=== PATIENT | female | born 1970 | race Native Hawaiian/Other Pacific Islander ===

== ENCOUNTER 2017-03-26 20:29 | Emergency (ER) | payer OTHER ==
[~2017-03-26] VITALS: Ht 167.6 cm; Wt 70.3 kg
[2017-03-26 22:52] LABS: PLATELET COUNT 341 K/uL (152-353)
== END 2017-03-27 01:17 | disposition home or self-care (01) ==
LOC: ED 20:29
PROVIDERS: Specialist
DX: F43.20 Adjustment disorder, unspecified (principal); R45.86 Emotional lability
CPT/HCPCS: 36415; 80053; 80307; 81000; 83735; 84100; 85027; 96372; 99283; G0479; J2060

== ENCOUNTER 2018-03-22 12:12 | Emergency (ER) | payer OTHER ==
[~2018-03-22] VITALS: Ht 167.6 cm; Wt 59.4 kg
[2018-03-22] MEDS ORDERED: SERT50TA PO (12:22)
[2018-03-22] MEDS ORDERED: BUSP5TAB2 PO (12:22)
== END 2018-03-22 13:35 | disposition home or self-care (01) ==
LOC: ED 12:12
DX: S62.642A Nondisplaced fracture of proximal phalanx of right middle finger, initial encounter for closed fracture (principal); X58.XXXA Exposure to other specified factors, initial encounter; Y92.89 Other specified places as the place of occurrence of the external cause
CPT/HCPCS: 99283; J1885